=== PATIENT | female | born 1945 | race Caucasian/White ===

== ENCOUNTER 2016-03-31 11:59 | Inpatient (IN) ==
--- NOTE | 2016-03-31 12:34 | Emergency Department Note ---
Disposition Clinical Impression: Neurologic abnormality Disposition: Admitted As Inpatient Condition: Fair Neuro HPI - General Chief Complaint: ED Neuro Symptoms/Deficit Stated Complaint: Stroke-like symptoms Time Seen by Provider: 03/31/16 12:11 Source: patient Limitations: no limitations Nursing Notes Reviewed: Yes Vital Signs Reviewed: Yes - History of Present Illness HPI Narrative: Ms. Nguyen, a 70yo female, arise from home by POV with Dr. deleon. She complained slurring of speech and, "not feeling right." Patient's sister noted slurred speech yesterday approximately noon. Patient's daughter noticed mild slurring of speech at 9:50 PM over the phone however she suspects she did wake her mother up from sleep. Patient's sister noticed slurring of speech again this morning at approximately 8:30 to 9:00 AM and patient had been awake for some time. Patient denies focal weakness on the right or left side. Patient denies difficulty swallowing liquids or chewing. At baseline, patient in place with a cane and denies any new difficulty with ambulation or falls. No new numbness or tingling. No unusual headaches. No changes in vision. Antiplatelet via Aspirin 81mg. PMH: Hypertension. No Hx CAD or CVA. No arrhythmias. - Related Data Home Medications: Home Medications Medication Instructions Recorded Confirmed Amlodipine [Norvasc] 5 mg PO DAILY 03/31/16 03/31/16 Aspirin Enteric Coated [Aspirin EC] 81 mg PO DAILY 03/31/16 03/31/16 Losartan Potassium [Cozaar] 100 mg PO DAILY 03/31/16 03/31/16 Allergies/Adverse Reactions: Allergies Allergy/AdvReac Type Severity Reaction Status Date / Time Penicillins Allergy Anaphylaxis Verified 03/31/16 12:02 Sulfa (Sulfonamide Allergy Anaphylaxis Verified 03/31/16 12:02 Antibiotics) All systems ED: reviewed and negative except as stated. Constitutional: Denies: fever, chills, weakness Eyes: Denies: vision change ENT ED: Denies: hearing loss Cardiovascular: Denies: chest pain, palpitations, dyspnea on exertion, syncope Respiratory: Denies: cough, dyspnea, wheezes Gastrointestinal: Denies: abdominal pain, nausea, vomiting, diarrhea, constipation, hematemesis, melena, hematochezia Genitourinary: Denies: urgency, dysuria Musculoskeletal: Denies: back pain, neck pain Integumentary: Denies: rash, abrasion, lesions Neurological: Denies: headache, weakness, numbness, paresthesias, confusion, abnormal gait, vertigo Endocrine: Denies: fatigue Hematological/Lymphatic: Denies: easy bleeding, easy bruising Past Medical History - Past Medical History Medical history: Reports: hypertension, other Psychiatric history: Reports: no psych history - Social History Smoking Status: Current every day smoker Smokeless Tobacco Status: No Alcohol use: Reports: none Drug use: Reports: none Physical Exam General: Patient is alert, oriented, and in no acute distress. She appears frail and cachectic. HEENT: Mild left facial droop at rest. Head is normocephalic and atraumatic. PERRLA, EOMI. Nasal turbinates moist and pink. Posterior pharynx without exudates or cobblestoning. Trachea midline. Cardiovascular: Heart regular rate and rhythm without clicks, rubs, gallops, or murmurs. No JVD. PMI nondisplaced. No pedal edema. Bilateral radial and posterior tibial pulses 2+. Respiratory: Symmetric chest rise with good respiratory effort. Bilateral breath sounds are clear without wheezing, crackles, or rhonchi. Abdomen: Bowel sounds present normoactive x-4 quadrants. Abdomen is soft, nondistended, and nontender. No organomegaly noted. Musculoskeletal: Muscle strength 5/5 and symmetric bilaterally in upper and lower extremities. Neuro: Cranial nerves VII with mild left mouth droop, no eyebrow asymmetry. Otherwise, CN II through XII without deficit. Sensation light touch intact. Psych: Patient's affect is appropriate for situation. - General Limitations: no limitations General appearance: alert, in no apparent distress Course Course Narrative: No medication at this time to call a code stroke. There is possibility of Perez' s palsy left side but this does not correlate with the reported dysarthria. Patient's lab work is unremarkable. Specifically negative troponin, no laterally abnormalities, no white count. Patient's imaging has returned negative showing no acute abnormalities. Chest X-Ray 03/31/16 12:19 IMPRESSION: Stable portable study. D/ / Maribell Turner Cha, MD / Maribell Turner Cha, MD Interpreting Provider: Maribell Turner Cha, MD Head CT 03/31/16 12:19 IMPRESSION: No acute intracranial abnormality. D/ / John Cuevas MD / John Cuevas MD Interpreting Provider: John Cuevas MD 14:40 Spoke with neurology, . He agrees to see patient for continued neurologic workup with admission to hospitalist. He recommends beginning her on Plavix 75 which I will give first dose here in the ER. 15:[address] Sims. He agrees to see the patient. Vital Signs Temperature 97.8 F 03/31/16 12:02 Pulse Rate 106 03/31/16 12:02 Respiratory Rate 16 03/31/16 12:02 Blood Pressure 168/92 03/31/16 12:02 O2 Sat by Pulse Oximetry 90 L 03/31/16 12:02 Temperature 97.8 F 03/31/16 17:02 Pulse Rate 85 03/31/16 17:02 Respiratory Rate 15 03/31/16 17:02 Blood Pressure 172/101 03/31/16 17:02 O2 Sat by Pulse Oximetry 92 L 03/31/16 17:02 Oxygen Delivery Oxygen Delivery Room Air Neuro Symptoms/Deficit - Lab Data Result diagrams: 03/31/16 12:52 03/31/16 12:52 Lab Results 03/31/16 03/31/16 03/31/16 Range/Units 12:03 12:52 12:52 WBC 6.5 (4.3-11.1) K/mcL RBC 5.09 H (3.82-4.97) M/mcL Hgb 14.9 (11.5-15.4) g/dL Hct 45.5 H (35.3-44.9) % MCV 89.4 (83.0-100.0) fL MCH 29.3 (28.0-33.3) pg MCHC 32.7 (31.6-35.5) g/dL RDW 13.6 (11.5-14.5) % Plt Count 298 (140-400) K/mcL MPV 9.6 (9.4-12.4) fL Immature Gran % 0.2 (0-4) % Seg Neutrophils % 80.0 % Lymphocytes % 12.6 % Monocytes % 5.2 % Eosinophils % 1.1 % Basophils % 0.9 % Neutrophils # 5.2 (1.6-8.9) K/mcL Lymphocytes # 0.8 (0.6-4.6) K/mcL Monocytes # 0.3 (0.0-1.3) K/mcL Eosinophils # 0.1 (0.0-0.6) K/mcL Basophils # 0.1 (0.0-0.2) K/mcL PT 11.4 (9.4-12.1) Seconds INR 1.1 APTT 34.1 (26.0-36.0) Seconds Sodium (136-145) mEq/L Potassium (3.5-4.5) mEq/L Chloride (98-109) mEq/L Carbon Dioxide (19-29) mEq/L BUN (7-20) mg/dL Creatinine (0.57-1.11) mg/dL Est GFR ( Amer) (> 60) Est GFR (Non-Af Amer) (> 60) BUN/Creatinine Ratio (6-26) Glucose (70-99) mg/dL POC Glucose 115 H (58-89) Calculated Osmolality (280-300) Calcium (8.6-10.8) mg/dL Troponin I (0-0.03) ng/mL Urine Color (Yellow) Urine Clarity (Clear) Urine pH (5.0-8.0) pH Units Ur Specific Abbott (1.010-1.025) Urine Protein (Neg-Trace) mg/dL Urine Glucose (UA) (Normal) mg/dL Urine Ketones (Negative) mg/dL Urine Blood (Negative) Urine Nitrite (Negative) Urine Bilirubin (Negative) Urine Urobilinogen (Normal) mg/dL Ur Leukocyte Esterase (Negative) Urine Microscopic RBC (0-3) per hpf Urine Microscopic WBC (0-3) per hpf Ur Squamous Epith Cells (None-Few) per lpf Urine Bacteria (None-Few) per hpf Hyaline Casts (None-Few) per lpf Ur Culture Indicated? (NO) 03/31/16 03/31/16 03/31/16 Range/Units 12:52 12:52 14:10 WBC (4.3-11.1) K/mcL RBC (3.82-4.97) M/mcL Hgb (11.5-15.4) g/dL Hct (35.3-44.9) % MCV (83.0-100.0) fL MCH (28.0-33.3) pg MCHC (31.6-35.5) g/dL RDW (11.5-14.5) % Plt Count (140-400) K/mcL MPV (9.4-12.4) fL Immature Gran % (0-4) % Seg Neutrophils % % Lymphocytes % % Monocytes % % Eosinophils % % Basophils % % Neutrophils # (1.6-8.9) K/mcL Lymphocytes # (0.6-4.6) K/mcL Monocytes # (0.0-1.3) K/mcL Eosinophils # (0.0-0.6) K/mcL Basophils # (0.0-0.2) K/mcL PT (9.4-12.1) Seconds INR APTT (26.0-36.0) Seconds Sodium 138 (136-145) mEq/L Potassium 3.8 (3.5-4.5) mEq/L Chloride 104 (98-109) mEq/L Carbon Dioxide 24 (19-29) mEq/L BUN 11 (7-20) mg/dL Creatinine 0.84 (0.57-1.11) mg/dL Est GFR ( Amer) > 60 (> 60) Est GFR (Non-Af Amer) > 60 (> 60) BUN/Creatinine Ratio 13 (6-26) Glucose 105 H (70-99) mg/dL POC Glucose (58-89) Calculated Osmolality 286 (280-300) Calcium 8.8 (8.6-10.8) mg/dL Troponin I 0.01 (0-0.03) ng/mL Urine Color Yellow (Yellow) Urine Clarity Clear (Clear) Urine pH 6.0 (5.0-8.0) pH Units Ur Specific Abbott 1.016 (1.010-1.025) Urine Protein 30 H (Neg-Trace) mg/dL Urine Glucose (UA) 100 H (Normal) mg/dL Urine Ketones Negative (Negative) mg/dL Urine Blood Negative (Negative) Urine Nitrite Negative (Negative) Urine Bilirubin Negative (Negative) Urine Urobilinogen Normal (Normal) mg/dL Ur Leukocyte Esterase Negative (Negative) Urine Microscopic RBC 0-3 (0-3) per hpf Urine Microscopic WBC 0-3 (0-3) per hpf Ur Squamous Epith Cells Many H (None-Few) per lpf Urine Bacteria None Seen (None-Few) per hpf Hyaline Casts None Seen (None-Few) per lpf Ur Culture Indicated? NO (NO) - EKG Data EKG attestation: Yes I reviewed and interpreted this EKG. EKG results narrative: EKG dated 03/31/16 interpreted as sinus rhythm with a rate of 95. Normal intervals with MN 134, QRS 144, QT/QTC 331/74. Rare PVCs. Normal axis. T- wave inversions in V1 and V2 which are present on previous EKG dated 2012. No acute ischemic changes compared to previous EKG. NIH Stroke Scale - Level of Consciousness LOC: Alert - LOC Questions LOC Questions: Answers both correctly - LOC Commands LOC Commands: Performs both correctly - Best Gaze Best Gaze: Normal - Visual Visual: No visual loss - Facial Palsy Facial Palsy: Minor asymmetry on smiling, flattened nasolabial fold - Motor Arms Motor Arm-Left: No drift for 10 seconds Motor Arm-Right: No drift for 10 seconds - Motor Legs Motor Leg-Left: No drift for 5 seconds Motor Leg-Right: No drift for 5 seconds - Limb Ataxia Limb Ataxia: Normal, No Ataxia - Sensory Sensory: Normal - Best Language Best Language: No aphasia - Dysarthria Dysarthria: Mild, slurs some words - Extinction and Inattention Extinction and Inattention: Normal - NIHSS Total Score NIHSS Total Score: 2 TPA Checklist - Source Information Source: Patient - Eligibilty for IV tPA 1. LKW equal to or less than 4.5 hours be before treatment: No - LKW: 3-4.5 hrs Add. Contraindications Patient/family understanding: The patient/family members have been counseled and understood the risk, benefit , and alternatives of treatment. Attestation Statement - Attestation Attestation: I examined this patient and my medical decision-making was reviewed with the ROLLER PAINTER/PA/Advanced Practice Nurse/Resident Physician. I agree with the documented findings, disposition and treatment plan as described except to the extent set forth below. Patient presents to the emergency department the chief complaint of difficulty with speech. Onset was noon yesterday, 24 hours ago. She states she first noticed it when talking to a family member on the phone. Noticed drooping in her face. She denies any symptoms in her arms or legs. On exam she has drooping of the left side of the mouth. She does have garbled speech. Slurred. Slow. Plan. Patient appears to have a stroke. Stroke workup and likely admission.
[2016-03-31 13:57] LABS: Basophils # 0.1 K/mcL (0.0-0.2); Basophils % 0.9 %; Eosinophils # 0.1 K/mcL (0.0-0.6); Eosinophils % 1.1 %; Hematocrit 45.5 % (35.3-44.9); Hemoglobin 14.9 g/dL (11.5-15.4); Immature Granulocytes % 0.2 % (0-4); Lymphocytes # 0.8 K/mcL (0.6-4.6); Lymphocytes % 12.6 %; Mean Corpuscular HGB Conc 32.7 g/dL (31.6-35.5); Mean Corpuscular Hemoglobin 29.3 pg (28.0-33.3); Mean Corpuscular Volume 89.4 fL (83.0-100.0); Mean Platelet Volume 9.6 fL (9.4-12.4); Monocytes # 0.3 K/mcL (0.0-1.3); Monocytes % 5.2 %; Neutrophils # 5.2 K/mcL (1.6-8.9); Platelet Count 298 K/mcL (140-400); Red Blood Count 5.09 M/mcL (3.82-4.97); Red Cell Distribution Width 13.6 % (11.5-14.5)
[2016-03-31 14:01] LABS: INR 1.1; Prothrombin Time 11.4 Seconds (9.4-12.1)
[2016-03-31 14:04] LABS: Activated Partial Thrombo Time 34.1 Seconds (26.0-36.0)
[2016-03-31 14:09] LABS: BUN/Creatinine Ratio 13 (6-26); Blood Urea Nitrogen 11 mg/dL (7-20); Calcium 8.8 mg/dL (8.6-10.8); Carbon Dioxide 24 mEq/L (19-29); Chloride 104 mEq/L (98-109); Glucose 105 mg/dL (70-99); Osmolality,Calculated 286 (280-300); Potassium 3.8 mEq/L (3.5-4.5); Sodium 138 mEq/L (136-145); eGFR For African Americans > 60 (> 60); eGFR For Non-African Americans > 60 (> 60)
[2016-03-31 14:17] LABS: Bilirubin,Urine Negative (Negative); Blood,Urine Negative (Negative); Clarity,Urine Clear (Clear); Color,Urine Yellow (Yellow); Glucose,Urine (UA) 100 mg/dL (Normal); Ketones,Urine Negative (Negative); Leukocyte Esterase,Urine Negative (Negative); Nitrite,Urine Negative (Negative); Protein,Urine 30 mg/dL (Neg-Trace); Specific Gravity,Urine 1.016 (1.010-1.025); Urobilinogen,Urine Normal (Normal)
[2016-03-31 14:20] LABS: Bacteria,Urine None Seen per hpf (None-Few); Hyaline Casts,Urine None Seen per lpf (None-Few); RBC,Urine 0-3 per hpf (0-3); Squamous Epithelial Cell,Urine Many per lpf (None-Few); WBC,Urine 0-3 per hpf (0-3)
[2016-03-31] MEDS ORDERED: Acetaminophen 325 MG TABLET PO PRN (16:15)
[2016-03-31] MEDS ORDERED: Ondansetron 4 MG/2 ML VIAL IVP PRN (16:15)
[2016-03-31] MEDS ORDERED: Naloxone 0.4 MG/ML INJ IVP PRN (16:15)
--- NOTE | 2016-03-31 16:25 | Internal Med History&Physical ---
Date of Encounter: 03/31/16 Time of Encounter: 15:40 Internal Medicine - H&P: HPI Chief complaint: slurring of speech, left facial dropping x 1 night/day. Admitted From: Emergency Dept Plans for Post Hospital Care: Home History of present illness: Ms. Nguyen is a 70 year old female Ms. Nguyen, with medical history significant for HTN, probable COPD (continue to smoke), presents with slurring of speech since yesternight. No other associated symptoms. She denies blurring vision, headaches, nausea, vomiting, no weakness in any extremity, no paresthesia. No falls. No dysphagia, no choking with meals or drinks. No new onset urinary symptoms. Non change in mentation or sleep pattern. Her children noted the speech impairment when they talked with her over the phone. at about 12:00 noon and again at 9:50PM yesterday. They have accompanied her to the ED. No prior history of TIA/CVA/DVT/PE. nO CHANGE IN COUGH PATTERN (CHRONIC INTERMITTENT COUGH), she reports chronic fatigue. No falls, no constitutional symptoms. No glandular enalrgement. She is FULL CODE as per discussion, she nominates her son , Yo Nguyen. ROS: A 10-point ROS was performed, positives and relevant negatives are detailed , system-symptom not mentioned assumed negative unless otherwise stated. Family history: Father, PA @ 54, DM2: Mother: DM2, emphysema (she smoked), son and daughter: HTN, HLD. Vital Signs Temperature 97.8 F 03/31/16 12:02 Pulse Rate 106 03/31/16 12:02 Respiratory Rate 16 03/31/16 12:02 Blood Pressure 168/92 03/31/16 12:02 O2 Sat by Pulse Oximetry 90 L 03/31/16 12:02 Temperature 97.8 F 03/31/16 12:02 Pulse Rate 106 03/31/16 12:02 Respiratory Rate 16 03/31/16 12:02 Blood Pressure 168/92 03/31/16 12:02 O2 Sat by Pulse Oximetry 90 L 03/31/16 12:02 O/E: not in distress, not ill or toxic looking, HEENT: Not pale, anicteric, afebrile, acyanotic. Trachea is central. left facial dropping. Chest: Harsh breath sound, transmitted breath sounds. Good air entry bilaterally. Cough (productive) Heart: RRR, HS1.2 no murmur Abdomen: soft, non-tender, no masses. BS+ : no flank tenderness, no CVA tenderness, no suprapubic tenderness. RESEARCH COORDINATOR: aao x 3, PERRL, EOMI, expressive dysphasia/dysarthria, bilaterally hyper- reflexic knee (probably anxiety), plantar reflex is extensor bilateraly, symmetrical. Psychiatry: mood is good, affect is congruent, speech is normal, thought process is logical and goal-directed. Extremities: no pedal edema, normal pedal pulse, no calf tenderness. Lab Results 03/31/16 03/31/16 03/31/16 Range/Units 12:03 12:52 12:52 WBC 6.5 (4.3-11.1) K/mcL RBC 5.09 H (3.82-4.97) M/mcL Hgb 14.9 (11.5-15.4) g/dL Hct 45.5 H (35.3-44.9) % MCV 89.4 (83.0-100.0) fL MCH 29.3 (28.0-33.3) pg MCHC 32.7 (31.6-35.5) g/dL RDW 13.6 (11.5-14.5) % Plt Count 298 (140-400) K/mcL MPV 9.6 (9.4-12.4) fL Immature Gran % 0.2 (0-4) % Seg Neutrophils % 80.0 % Lymphocytes % 12.6 % Monocytes % 5.2 % Eosinophils % 1.1 % Basophils % 0.9 % Neutrophils # 5.2 (1.6-8.9) K/mcL Lymphocytes # 0.8 (0.6-4.6) K/mcL Monocytes # 0.3 (0.0-1.3) K/mcL Eosinophils # 0.1 (0.0-0.6) K/mcL Basophils # 0.1 (0.0-0.2) K/mcL PT 11.4 (9.4-12.1) Seconds INR 1.1 APTT 34.1 (26.0-36.0) Seconds Sodium (136-145) mEq/L Potassium (3.5-4.5) mEq/L Chloride (98-109) mEq/L Carbon Dioxide (19-29) mEq/L BUN (7-20) mg/dL Creatinine (0.57-1.11) mg/dL Est GFR ( Amer) (> 60) Est GFR (Non-Af Amer) (> 60) BUN/Creatinine Ratio (6-26) Glucose (70-99) mg/dL POC Glucose 115 H (58-89) Calculated Osmolality (280-300) Calcium (8.6-10.8) mg/dL Troponin I (0-0.03) ng/mL Urine Color (Yellow) Urine Clarity (Clear) Urine pH (5.0-8.0) pH Units Ur Specific Moca (1.010-1.025) Urine Protein (Neg-Trace) mg/dL Urine Glucose (UA) (Normal) mg/dL Urine Ketones (Negative) mg/dL Urine Blood (Negative) Urine Nitrite (Negative) Urine Bilirubin (Negative) Urine Urobilinogen (Normal) mg/dL Ur Leukocyte Esterase (Negative) Urine Microscopic RBC (0-3) per hpf Urine Microscopic WBC (0-3) per hpf Ur Squamous Epith Cells (None-Few) per lpf Urine Bacteria (None-Few) per hpf Hyaline Casts (None-Few) per lpf Ur Culture Indicated? (NO) 03/31/16 03/31/16 03/31/16 Range/Units 12:52 12:52 14:10 WBC (4.3-11.1) K/mcL RBC (3.82-4.97) M/mcL Hgb (11.5-15.4) g/dL Hct (35.3-44.9) % MCV (83.0-100.0) fL MCH (28.0-33.3) pg MCHC (31.6-35.5) g/dL RDW (11.5-14.5) % Plt Count (140-400) K/mcL MPV (9.4-12.4) fL Immature Gran % (0-4) % Seg Neutrophils % % Lymphocytes % % Monocytes % % Eosinophils % % Basophils % % Neutrophils # (1.6-8.9) K/mcL Lymphocytes # (0.6-4.6) K/mcL Monocytes # (0.0-1.3) K/mcL Eosinophils # (0.0-0.6) K/mcL Basophils # (0.0-0.2) K/mcL PT (9.4-12.1) Seconds INR APTT (26.0-36.0) Seconds Sodium 138 (136-145) mEq/L Potassium 3.8 (3.5-4.5) mEq/L Chloride 104 (98-109) mEq/L Carbon Dioxide 24 (19-29) mEq/L BUN 11 (7-20) mg/dL Creatinine 0.84 (0.57-1.11) mg/dL Est GFR ( Amer) > 60 (> 60) Est GFR (Non-Af Amer) > 60 (> 60) BUN/Creatinine Ratio 13 (6-26) Glucose 105 H (70-99) mg/dL POC Glucose (58-89) Calculated Osmolality 286 (280-300) Calcium 8.8 (8.6-10.8) mg/dL Troponin I 0.01 (0-0.03) ng/mL Urine Color Yellow (Yellow) Urine Clarity Clear (Clear) Urine pH 6.0 (5.0-8.0) pH Units Ur Specific Moca 1.016 (1.010-1.025) Urine Protein 30 H (Neg-Trace) mg/dL Urine Glucose (UA) 100 H (Normal) mg/dL Urine Ketones Negative (Negative) mg/dL Urine Blood Negative (Negative) Urine Nitrite Negative (Negative) Urine Bilirubin Negative (Negative) Urine Urobilinogen Normal (Normal) mg/dL Ur Leukocyte Esterase Negative (Negative) Urine Microscopic RBC 0-3 (0-3) per hpf Urine Microscopic WBC 0-3 (0-3) per hpf Ur Squamous Epith Cells Many H (None-Few) per lpf Urine Bacteria None Seen (None-Few) per hpf Hyaline Casts None Seen (None-Few) per lpf Ur Culture Indicated? NO (NO) EKG: NSR @ 95. occasional PVC. no acute ischemic changes. Chest X-Ray 03/31/16 12:19 No acute cardiopulmonary findings. Head CT 03/31/16 12:19 No acute intracranial abnormality. 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 PLAN Admit Aspirin/plavix Lipitor 10 mg HS Lipid profile, HgA1c, TSH Allow permissive hypertension for now MRI head, MRA head and neck 2D ECHO Speech and swallow evaluation DVT prophylaxis with Lovenox 40 mg QD No indication for GI prophylaxis Neurocheck Q4H I discussed my assessemt with the patient, her family at bedside, they verbalized understanding and are agreeable to admission. She is admitted for evaluation of CVA especially cardiovascular risk factors. Past Med Surg Social Fam HX - Past Medical History Medical history: hypertension, other Psychiatric history: no psych history - Social History Smoking Status: Current every day smoker Smokeless Tobacco Status: No Alcohol use: none Drug use: none Internal Medicine - H&P: Meds Amlodipine [Norvasc] 5 mg PO DAILY 03/31/16 [History] Aspirin Enteric Coated [Aspirin EC] 81 mg PO DAILY 03/31/16 [History] Losartan Potassium [Cozaar] 100 mg PO DAILY 03/31/16 [History] Allergies Penicillins Allergy (Verified 03/31/16 12:02) Anaphylaxis Sulfa (Sulfonamide Antibiotics) Allergy (Verified 03/31/16 12:02) Anaphylaxis All Systems PM: A 10-system review of systems was performed and is negative for pertinent findings except as documented above in the HPI. - Constitutional Vitals: Temp Pulse Resp BP Pulse Ox 97.8 F 87 18 170/90 97 03/31/16 12:02 03/31/16 15:28 03/31/16 15:28 03/31/16 15:28 03/31/16 15:28 Internal Med - H&P Results - Labs CBC & Chem 7: 03/31/16 12:52 03/31/16 12:52
[2016-03-31] MEDS ORDERED: Albuterol 2.5 MG/3 ML NEBULIZER IH PRN (16:39)
[2016-03-31] MEDS ORDERED: *HR* LORazepam 2 MG/ML VIAL IVP ONE (17:32)
[2016-04-01] MEDS: *HR* Enoxaparin 40 MG/0.4 ML SYRINGE SQ SCH (05:09)
[2016-04-01 05:42] LABS: Hemoglobin A1C 5.4 %
[2016-04-01 06:54] LABS: Chol/HDL Ratio 3.2 (0-4.9)
[2016-04-01] MEDS: Aspirin Enteric Coated 81 MG Tablet PO SCH (08:19)
[2016-04-01] MEDS: amLODIPine 5 MG TABLET PO SCH (08:20)
--- NOTE | 2016-04-01 09:06 | Neurology - Consult Note ---
Date of Encounter: 04/01/16 Time of Encounter: 08:25 Assessment and Plan (1) Lacunar infarct, acute Current Visit: Yes Status: Acute Patient MRI of the brain did show evidence of acute lacunar infarction in the frontal lobe, without any evidence of bleed. Symptoms of slurred speech and mild left facial droop could be related. Luckily enough she did not have any focal motor deficit on neurological examination. MRA of the neck did not show any critical stenosis Likely a small vessel disease related to underlying hypertension. She had been on aspirin suggested to add Plavix 75 mg daily, at discharge discontinue aspirin and continue only on Plavix as do not think that she would require antiplatelet therapy. sHe would also benefit from addition of lipid-lowering agents like Lipitor on a daily basis. She has been concern, with addition of Lipitor because of the potential side effect as she has seen on the TV, splint provided that it is important that she needed to be on a statin along with antiplatelet therapy because of acute stroke she needed to be on a smaller dose and if she develop any side effects particularly any proximal weakness in the future that could be discontinued, usually the lower doses does not associated with any acute side effects. We did monitor her blood pressure and make sure that it is a stable as it is likely a small vessel disease perhaps related to a fluctuating hypertension. Patient will be evaluated by physical therapy for in the gait and balance issues though she did not have any focal motor weakness, do not think that she would require any acute rehabilitation. Discussed with the patient and daughter is at the bedside (2) Slurring of speech Current Visit: Yes Status: Acute Improving likely related to underlying stroke History of Present Illness HPI: Ms. Nguyen is a 70 year old female with medical history significant for HTN, , presents with slurring of speech since yesterday without any other motor weakness, family noted the speech impairment when they talked with her over the phone. at about 12:00 noon and again at 9:50PM yesterday, so they got concern and brought her to ER< they noted mild left facial droop as well, She denies blurring vision, headaches, nausea, vomiting, no weakness in any extremity, no paresthesia. No falls. No dysphagia, No change in mentation, she denies any prior history of TIA/CVA/DVT/PE. she reports chronic fatigue. No falls. pt was admitted with the concern of TIA and stroke work up. Past Med Surg Social Fam HX - Past Medical History Medical history: hypertension, other Psychiatric history: no psych history - Past Surgical History Surgical History: hysterectomy - Social History Smoking Status: Current every day smoker Smokeless Tobacco Status: No Alcohol use: none Drug use: none Medications and Allergies Amlodipine [Norvasc] 5 mg PO DAILY 03/31/16 [History] Aspirin Enteric Coated [Aspirin EC] 81 mg PO DAILY 03/31/16 [History] Losartan Potassium [Cozaar] 100 mg PO DAILY 03/31/16 [History] Allergies Penicillins Allergy (Verified 03/31/16 12:02) Anaphylaxis Sulfa (Sulfonamide Antibiotics) Allergy (Verified 03/31/16 12:02) Anaphylaxis All Systems: A 10-system review of systems was performed and is negative for pertinent findings except as documented above in the HPI. Review of Systems: A 10-system review of systems was performed and is negative for pertinent findings except as documented above in the HPI. Physical Examination - Vital Signs Vital Signs: Initial Vital Signs Temp Pulse Resp BP Pulse Ox 97.8 F 106 16 168/92 90 L 03/31/16 12:02 03/31/16 12:02 03/31/16 12:02 03/31/16 12:02 03/31/16 12:02 - Exam Exam: Heart S1 and S2 audible, lungs decreased breath sounds, extremities no pedal edema - Constitutional General appearance: comfortable - Neurologic Sensorimotor examination: intact Detailed motor examination: grossly full strength in all extremities Motor examination - right side: 4/5: deltoids, biceps, triceps, wrist flexion, wrist extension, spring salvage worker, hip flexors, tibialis Anterior, quadriceps Motor examination - left side: 4/5: deltoids, biceps, triceps, wrist flexion, wrist extension, hip flexors, spring salvage worker, quadriceps, tibialis Anterior, toe extension (EHL), plantarflexion Detailed sensory examination: intact Reflex and gait examination: intact Reflexes: Biceps: 1+, Triceps: 1+, Brachioradialis: 1+, Patella: 1+, Achilles: 1 + Mental Status Examination: awake, alert, oriented to person, oriented to place, oriented to time, follows commands appropriately, answers questions appropriately Cranial nerve examination: PERRL, EOMI, visual zuniga intact, corneal reflexes brisk symmetrically, sensory to face intact, no dysarthria Cranial Nerve Exam: facial droop: Left (very mild) Cerebellar examination: no dysmetria Results - Laboratory Findings CBC and BMP: 03/31/16 12:52 03/31/16 12:52 Abnormal lab findings: Abnormal lab results RBC 5.09 M/mcL (3.82-4.97) H 03/31/16 12:52 Hct 45.5 % (35.3-44.9) H 03/31/16 12:52 Glucose 105 mg/dL (70-99) H 03/31/16 12:52 POC Glucose 115 (58-89) H 03/31/16 12:03 LDL Cholesterol, Calc 105 mg/dL (0-99) H 04/01/16 03:45 Urine Protein 30 mg/dL (Neg-Trace) H 03/31/16 14:10 Urine Glucose (UA) 100 mg/dL (Normal) H 03/31/16 14:10 Ur Squamous Epith Cells Many per lpf (None-Few) H 03/31/16 14:10 - Diagnostic Findings Additional findings: MRI of the brain shows evidence of acute lacunar infarct in the right frontal rand radiata, the same time there is evidence of old left caudate infarct with mild atrophy. MRA of the neck did not show any critical stenosis of carotid or vertebral Consult Discharge Plan - Plan Referrals: Lisseth Ruth MD [Primary Care Provider] -
--- NOTE | 2016-04-01 12:08 | ECHO - Doppler Report ---
Echo with Saline Contrast Name: Theresa Nguyen Date of Study: 04/01/2016 Date: 1945 Ht: 64.0 in Medical Record#: [id number] Age: 70 Wt: 167.0 lb Gender: Female BSA: 1.81 Order #: [id number] Location: [facility] Room #: 3B23 Reading Physician: Ezra Nguyễn MD, [facility] [employer]: Josefina Sim T Ordering Physician: Kalpesh Sims MD Primary Physician: Lisseth Ruth MD Indications: Transient Ischemic Attack Impressions: Normal left ventricular systolic function, LVEF 60%. There is atypical motion of the interventricular septum. Mild left ventricular diastolic dysfunction. Normal right ventricular size and function. No significant valvular dysfunction. No evidence of pulmonary hypertension. Estimated RVSP = 34 mmHg (upper limits of normal). No evidence of intracardiac shunting with agitated saline contrast (fair quality study). Blood pressure was elevated (189/103) at the time of this study. Left Ventricular Wall Motion: Rest Echo Findings All wall segments showed normal motion. Findings: Study Quality * Suboptimal echo windows. ECG Findings * Normal sinus rhythm. Left Ventricle * Normal left ventricular systolic function, LVEF 60%. * Normal LV chamber size and wall thickness. * There is atypical motion of the interventricular septum. * Mild left ventricular diastolic dysfunction. Right Ventricle * Normal right ventricular size and function. Left Atrium * Normal left atrial size. Right Atrium * Normal right atrial size. Interatrial Septum * No evidence of intracardiac shunting with agitated saline contrast (fair quality study). Aorta * Normally sized aortic root. Pericardium * There is no pericardial effusion present. IVC * Normal IVC dimensions and inspiratory collapse. Aortic Valve * Aortic valve not well visualized. Appears mildly sclerotic. * No aortic stenosis. * No aortic regurgitation. Mitral Valve * Mild mitral annular calcification * No mitral stenosis. * Trace mitral regurgitation. Tricuspid Valve * Normal tricuspid valve structure. * No tricuspid stenosis. * Trace tricuspid regurgitation. * No evidence of pulmonary hypertension. Estimated RVSP = 34 mmHg (upper limits of normal). Pulmonic Valve * Pulmonic valve not well visualized. * No pulmonic stenosis. * No pulmonic regurgitation. History Hypertension Family History of CAD Contrast: Agitated saline 16 ml. Measurements: BP: 189/ 103 2D Normal Values RVIDd: 2.10 cm IVSd: 1.00 cm 0.6 - 1.0 cm LVIDd: 3.90 cm 3.7 - 5.6 cm LVPWd: 1.00 cm 0.6 - 1.1 cm LVIDs: 2.40 cm 1.5 - 3.6 cm AO: 3.10 cm < 4.0 cm %FS: 38.50 cm >25 % LA volume: 34 Mitral Valve Peak E:.63 m/sec Peak A:.91 m/sec E/A Ratio:0.7 Tricuspid Valve TV Regurg Peak Grad: 31.00mmHg TV Regurg Peak Ismael: 2.79m/sec Updated by Ezra Nguyễn MD, [facility] on 04/01/2016 12:02:15 PM electronically signed on 04/01/2016 12:03:56 PM with status of Final Wall Motion Murphy: 1=Normal, 2=Hypokinesis, 3=Akinesis, 4=Dyskinesis, 5=Aneurysmal, 6=Hyperkinetic, X=Not Visualized (Blank)=Missing
--- NOTE | 2016-04-01 13:56 | Internal Med Progress Note ---
Date of Encounter: 04/01/16 Time of Encounter: 09:30 - Assessment and plan (1) Lacunar infarct, acute Current Visit: Yes Status: Acute Assessment and plan: Chest x-ray negative. Head CT negative. Brain MRI revealing acute ischemic lacunar infarct in the posterior right frontal rand radiata white matter. Likely secondary to uncontrolled hypertension. Head and neck MRA unremarkable for critical stenosis. We will observe overnight and adjust her blood pressure medications. She has no focal neurological weaknesses. Only symptom is mild left-sided facial drooping. She is able to fully close her eye and she was evaluated by speech therapy. No indication for occupational or physical therapy evaluations. ITS Impressions Chest X-Ray 03/31/16 12:19 IMPRESSION: Stable portable study. D/ / Maribell Turner Cha, MD / Maribell Turner Cha, MD Interpreting Provider: Maribell Turner Cha, MD Head CT 03/31/16 12:19 IMPRESSION: No acute intracranial abnormality. D/ / John Cuevas MD / John Cuevas MD Interpreting Provider: John Cuevas MD Brain MRI 03/31/16 15:56 IMPRESSION: 1. Acute ischemic lacunar infarct in the posterior right frontal rand radiata white matter. 2. No evidence of intracranial hemorrhage or mass effect. 3. Moderate chronic white matter microvascular ischemic changes. 4. Remote left caudate nucleus lacunar infarct. 5. No intracranial arterial abnormality within limits of motion artifact. D/ / Chris Alberto MD / Chris Alberto MD Interpreting Provider: Chris Alberto MD Head MRA 03/31/16 16:20 IMPRESSION: 1. Acute ischemic lacunar infarct in the posterior right frontal rand radiata white matter. 2. No evidence of intracranial hemorrhage or mass effect. 3. Moderate chronic white matter microvascular ischemic changes. 4. Remote left caudate nucleus lacunar infarct. 5. No intracranial arterial abnormality within limits of motion artifact. D/ / Chris Alberto MD / Chris Alberto MD Interpreting Provider: Chris Alberto MD Neck MRA 03/31/16 16:20 IMPRESSION: No arterial stenosis in the neck, however the proximal arch vessels and vertebral artery origins are suboptimally evaluated. D/ / Chris Alberto MD / Chris Alberto MD Interpreting Provider: Chris Alberto MD (2) Slurring of speech Current Visit: Yes Status: Acute Assessment and plan: Speech therapy on board. Speech is mildly slurred but still intelligible. (3) HTN (hypertension) Current Visit: Yes Status: Chronic Assessment and plan: Uncontrolled on her home medications which include amlodipine 5 mg, and losartan 100 mg daily. She is also tachycardic- will add low dose metoprolol BID. This is likely a contributing factor to her acute lacunar infarct. Will observe overnight to gain control over BP. (4) COPD (chronic obstructive pulmonary disease) Current Visit: Yes Status: Chronic Assessment and plan: No acute exacerbation. Patient denies shortness of breath. (5) Tobacco abuse Current Visit: Yes Status: Chronic - Subjective Interval history: Patient seen and examined. On examination, patient is sitting upright in bed eating her breakfast. She is conversing with her daughter. She states she continues to have slurred speech but denies pain or weakness at this time. - Constitutional Vitals: Temp Pulse Resp BP Pulse Ox 97.9 F 90 16 172/95 94 L 04/01/16 11:37 04/01/16 11:37 04/01/16 11:37 04/01/16 11:37 04/01/16 11:37 General appearance: Present: A&O X 3, pleasant, no acute distress, answers questions appropriately - Head Head exam: Present: atraumatic, normocephalic - Eye Eye exam: Present: PERRL, conjuntiva pink, sclera anicteric Pupils: Present: PERRL - Neck Neck exam general surgery: Present: supple, trachea midline. Absent: lymphadenopathy - Respiratory Respiratory exam: Present: CTAB. Absent: accessory muscle use, rales, respiratory distress, rhonchi, wheezes - Cardiovascular Cardiovascular exam: Present: RRR, +S1, +S2. Absent: diastolic murmur, gallop, rubs, systolic murmur - GI/Abdominal GI/Abdominal exam: Present: normal bowel sounds, soft, no peritoneal signs. Absent: distended, tenderness - Extremities Exam Extremities exam: Present: warm, radial pulses palpable and symetrical. Absent : calf tenderness, cyanotic, pedal edema - Neurological Exam Neurological exam: Present: alert, CN II-XII intact, oriented X3, no focal deficits, strengths equal and symetr throughout, facial droop, speech deficit. Absent: pronater drift - Expanded Neurological Exam Neurological exam expanded: Present: protecting the airway Patient oriented to: Present: person, place, time Speech: Present: fluid speech, slurred Cranial Nerves: EOM's intact PM: Normal, gag reflex PM: Normal, tongue deviation PM: Normal Neuro motor strength exam: LUE: 5, RUE: 5, LLE: 5, RLE: 5 Coma Scale Eye Opening: Spontaneous Coma Scale Motor Response: Obeys Commands Coma Scale Verbal Response: Oriented Coma Scale Total: 15 - Skin Skin exam: Present: dry, intact, normal color, warm Internal Medicine: Result - Labs CBC & Chem 7: 03/31/16 12:52 03/31/16 12:52 - ABG Interpretation ABG results: PT/INR, D-dimer PT 11.4 Seconds (9.4-12.1) 03/31/16 12:52 - Impressions Impressions Brain MRI 03/31/16 15:56 IMPRESSION: 1. Acute ischemic lacunar infarct in the posterior right frontal rand radiata white matter. 2. No evidence of intracranial hemorrhage or mass effect. 3. Moderate chronic white matter microvascular ischemic changes. 4. Remote left caudate nucleus lacunar infarct. 5. No intracranial arterial abnormality within limits of motion artifact. D/ / Chris Alberto MD / Chris Alberto MD Interpreting Provider: Chris Alberto MD Head MRA 03/31/16 16:20 IMPRESSION: 1. Acute ischemic lacunar infarct in the posterior right frontal rand radiata white matter. 2. No evidence of intracranial hemorrhage or mass effect. 3. Moderate chronic white matter microvascular ischemic changes. 4. Remote left caudate nucleus lacunar infarct. 5. No intracranial arterial abnormality within limits of motion artifact. D/ / hCris Alberto MD / Chris Alberto MD Interpreting Provider: Chris Alberto MD Neck MRA 03/31/16 16:20 IMPRESSION: No arterial stenosis in the neck, however the proximal arch vessels and vertebral artery origins are suboptimally evaluated. D/ / Chris Alberto MD / Chris Alberto MD Interpreting Provider: Chris Alberto MD Consult Discharge Plan - Plan Referrals: Lisseth Ruth MD [Primary Care Provider] -
--- NOTE | 2016-04-01 15:01 | Event Note ---
Date of Encounter: 04/01/16 Time of Encounter: 15:00 Patient remains hypertensive, metoprolol added to her regimen. She remains alert and oriented 3. Echocardiogram reviewed and revealed an ejection fraction of 60% and mild diastolic dysfunction. Patient euvolemic on examination. Patient has denied chest pain or shortness of breath throughout this admission. Atypical motion of the intraventricular septum noted on the echocardiogram as well. EKG also revealing intraventricular conduction delay. Troponins negative. Recommend follow-up outpatient.
[2016-04-02] MEDS: *HR* Enoxaparin 40 MG/0.4 ML SYRINGE SQ SCH (05:14)
--- NOTE | 2016-04-02 06:28 | Electrocardiograph Report ---
[place] [id number] Test Date: 2016-03-31 Pat Name: Theresa Nguyen Department: 104 Room: 3B23 Gender: F Cylinder Handler: : 1945 Requested By: Alejandra Castañeda Order Number: [id number] Reading MD: Benjamin Buckley MD Measurements Intervals [place] Rate: 95 P: 78 SD: 134 QRS: 34 QRSD: 144 T: 88 QT: 331 QTc: 384 Interpretive Statements SINUS RHYTHM WITH OCCASIONAL VENTRICULAR PREMATURE COMPLEXES Electronically Signed On 04-02-2016 6:26:22 EST by Benjamin Buckley MD
[2016-04-02] MEDS: Aspirin Enteric Coated 81 MG Tablet PO SCH (07:55)
[2016-04-02] MEDS: amLODIPine 5 MG TABLET PO SCH (07:55)
[2016-04-02 14:33] VITALS: BP 118/71
--- NOTE | 2016-04-02 15:19 | Discharge Summary ---
Date of Encounter: 04/02/16 Time of Encounter: 10:00 - Discharge Diagnosis (1) Lacunar infarct, acute Priority: Primary Status: Acute (2) COPD (chronic obstructive pulmonary disease) Priority: Secondary Status: Chronic Qualifiers: COPD type: unspecified COPD Qualified Code(s): J44.9 - Chronic obstructive pulmonary disease, unspecified (3) HTN (hypertension) Priority: Secondary Status: Chronic Qualifiers: Hypertension type: essential hypertension Qualified Code(s): I10 - Essential (primary) hypertension (4) Tobacco abuse Priority: Secondary Status: Chronic - Discharge Medications Prescriptions: Atorvastatin [Lipitor] 10 mg PO HS #30 tablet Clopidogrel [Plavix] 75 mg PO DAILY #30 tablet Metoprolol [Lopressor] 25 mg PO BID #60 tablet Home Medications: Amlodipine [Norvasc] 5 mg PO DAILY 03/31/16 [History] Losartan Potassium [Cozaar] 100 mg PO DAILY 03/31/16 [History] Atorvastatin [Lipitor] 10 mg PO HS #30 tablet 04/02/16 [Rx] Clopidogrel [Plavix] 75 mg PO DAILY #30 tablet 04/02/16 [Rx] Metoprolol [Lopressor] 25 mg PO BID #60 tablet 04/02/16 [Rx] Allergies/Adverse Reactions: Allergies Penicillins Allergy (Verified 03/31/16 12:02) Anaphylaxis Sulfa (Sulfonamide Antibiotics) Allergy (Verified 03/31/16 12:02) Anaphylaxis Date of admission: 04/01/16 15:05 Primary care physician: Lisseth Ruth Discharging clinician: Ramon Yang Anticipated date of discharge: 04/02/16 - Patient Status Disposition: Home, Self-Care Condition: Good Functional capacity at discharge: independent ambulation Overall status at discharge: patient is progressing back to baseline - Discharge Instructions Follow Up With: Lisseth Ruth MD [Primary Care Provider] - 04/06/16 11:15 am - Diet and Activity Activity: resume usual activities as tolerated Diet: low fat, low cholesterol, low salt diet Interval History: 70 year old female with medical history significant for HTN, probable COPD ( continue to smoke), Abdominal Aortic Aneurysm s/p repair, presented to ER with slurred speech and facial droop She was admitted for management of Ischemic CVA Chest x-ray negative. Head CT negative. Brain MRI revealing acute ischemic lacunar infarct in the posterior right frontal rand radiata white matter. MRA of the neck did not show any critical stenosis Echocardiogram reviewed and revealed an ejection fraction of 60% and mild diastolic dysfunction. Patient euvolemic on examination. Patient has denied chest pain or shortness of breath throughout this admission. Atypical motion of the intraventricular septum noted on the echocardiogram as well. EKG also revealing intraventricular conduction delay. Troponins negative. She was started on ASA and Plavix, as well as her home BP meds-Amlodipine and Losartan She has made significant improvement and is stable for discharge home Her dysarthria and facial droop have improved She required addition of metoprolol to her BP regimen She is educated extensively on tobacco cessation, 2g sodium diet, compliance with medications and lifestyle modification, checking blood pressure regularly She verbalized understanding Daughter was at bedside throughout She is stable for discharge home to continue Norvasc, Losartan, Metoprolol, Plavix and Lipitor Discontinue Aspirin 4 minutes spent on tobacco cessation counselling Patient refused NRT Follow up with PCP Hospital course: Ms. Nguyen is a 70 year old female As above Time spent discussing smoking cessation with patient: 3 to 10 minutes - Time Spent with Patient Total time spent providing and/or coordinating discharge services: Greater than 30 minutes (Time spent on patient education during face to face time, preparation of prescription for discharge and documentation) - Constitutional Vitals: Temp Pulse Resp BP Pulse Ox 97.6 F 72 14 118/71 93 L 04/02/16 14:33 04/02/16 14:33 04/02/16 14:33 04/02/16 14:33 04/02/16 14:33 General appearance: Present: A&O X 3, pleasant, no acute distress, answers questions appropriately - Head Head exam: Present: atraumatic, normocephalic - Eye Eye exam: Present: PERRL, conjuntiva pink, sclera anicteric Pupils: Present: PERRL - Neck Neck exam general surgery: Present: supple, trachea midline. Absent: lymphadenopathy - Respiratory Respiratory exam: Present: CTAB. Absent: accessory muscle use, rales, rhonchi, wheezes - Cardiovascular Cardiovascular exam: Present: RRR, +S1, +S2. Absent: diastolic murmur, gallop, rubs, systolic murmur - GI/Abdominal GI/Abdominal exam: Present: normal bowel sounds, soft, no peritoneal signs. Absent: distended, tenderness - Extremities Exam Extremities exam: Present: warm, radial pulses palpable and symetrical. Absent : calf tenderness, cyanotic, pedal edema - Neurological Exam Neurological exam: Present: CN II-XII intact, oriented X3, no focal deficits, strengths equal and symetr throughout, speech deficit (Mild dysarthria). Absent : pronater drift, facial droop - Skin Skin exam: Present: dry, intact
== END 2016-04-02 16:59 | disposition home or self-care (01) | DRG 66 ==
LOC: 3BNU 11:59 → EMEROO 11:59 → 3BNU 16:43 → SUATTDRO 04-01 15:05
PROVIDERS: ADMIT Nurse Practitioner Family; ATTEND Internal Medicine